=== PATIENT | female | born 1940 | race Hispanic/Latino ===

== ENCOUNTER → 2017-06-08 | Outpatient (CLI) | payer MEDICARE | LOC: RAH 17:00 | PROVIDERS: ATTEND Internal Medicine | DX: I70.0 Atherosclerosis of aorta (principal) | CPT/HCPCS: 71046 ==

== ENCOUNTER → 2017-07-16 | Outpatient (CLI) | payer MEDICARE | END | disposition home or self-care (01) | LOC: RAH 13:55 | PROVIDERS: ATTEND Internal Medicine | DX: M17.12 Unilateral primary osteoarthritis, left knee (principal); M25.561 Pain in right knee | CPT/HCPCS: 73562 ==

== ENCOUNTER → 2019-04-07 | Outpatient (CLI) | payer MEDICARE | END | disposition home or self-care (01) | LOC: RAH 13:22 | PROVIDERS: ATTEND Internal Medicine | DX: M19.071 Primary osteoarthritis, right ankle and foot (principal); M77.31 Calcaneal spur, right foot; M79.89 Other specified soft tissue disorders | CPT/HCPCS: 73610; 73630 ==

== ENCOUNTER → 2020-02-13 | Outpatient (CLI) | payer OTHER, MEDICARE | END | disposition home or self-care (01) | LOC: LAB 12:56 | PROVIDERS: ATTEND Internal Medicine Cardiovascular Disease | DX: R07.9 Chest pain, unspecified (principal); I10 Essential (primary) hypertension | CPT/HCPCS: 36415; 82550; 84484 ==

== ENCOUNTER → 2021-05-07 | Outpatient (CLI) | payer OTHER, MEDICARE | END | disposition home or self-care (01) | LOC: RAH 10:25 | PROVIDERS: ATTEND Internal Medicine | DX: I70.203 Unspecified atherosclerosis of native arteries of extremities, bilateral legs (principal); M71.22 Synovial cyst of popliteal space [Baker], left knee; M71.21 Synovial cyst of popliteal space [Baker], right knee | CPT/HCPCS: 93925 ==

== ENCOUNTER 2024-11-17 22:21 | Emergency (ER) | payer OTHER, MEDICARE ==
[~2024-11-17] VITALS: Ht 154.9 cm; Wt 84.8 kg
--- NOTE | 2024-11-17 22:32 | NUR ---
SEPSIS ALERT CALLED TO ER ROOM 5; PT WITH TEMP OF 101.1 W/PULSE OF 107
[2024-11-17 22:52] LABS: IMMATURE GRANULOCYTE ABSOLUTE 0.07 K/uL (0-1); NUCLEATED RED BLOOD CELLS 0.0 % (0.0-0.19); PLATELET COUNT (AUTO) 331 K/uL (130-400); RED BLOOD CELL COUNT(AUTO) 4.33 MIL/uL (4.00-5.50); RED CELL DISTRIBUTION WIDTH 14.6 % (11.0-15.5); WHITE BLOOD COUNT (AUTO) 13.3 K/uL (4.8-10.8)
--- NOTE | 2024-11-17 22:58 | ERN ---
ED Note History of Present Illness Stated Complaint: C/O HIGH B/P WITH DIZZINESS Chief Complaint: Hypertension Time Seen by MD: 22:29 Time Seen by Midlevel: 22:29 Dictation: The patient is a 84-year-old female with a history of hypertension who presents to the emergency department with complaints of elevated blood pressure, one episode of nonbloody vomiting , fevers onset today. Patient denies any abdominal pain, denies any cough but reports some throat irritation. Allergies: Coded Allergies: No Known Allergies (Unverified Allergy, Unknown, 11/17/24) Past Medical History Past Medical History: High Cholesterol, Hypertension Surgical History: RN Note Reviewed/Agreed w/PFSH: Yes Review of System Dictation Constitutional: Negative for chills, and weight loss positive for fever Eyes: Negative for injury, pain,redness, and discharge ENT: Negative for injury,pain or swelling Cardiovascular: Negative for chest pain, palpitations, and edema Respiratory: Negative for shortness of breath, cough, and wheezing, Abdomen/GI: Negative for abdominal pain, diarrhea, and constipation positive for nausea and vomiting Back: Negative for injury and pain : Negative for injury, bleeding and discharge MS/Extremity: Negative for injury and deformity Skin: Negative for rash, and discoloration Neuro: Negative for headache, weakness, numbness, tingling, and seizure Psych: Negative for suicide ideation, homicidal ideation, and hallucinations Initial Vital Sign VS Vital Signs Date Time Temp Pulse Resp B/P (MAP) Pulse Ox O2 Delivery O2 Flow Rate FiO2 11/17/24 22:24 101.1 107 20 178/76 93 Room Air 11/17/24 22:40 0 21 Physical Exam Dictation Vital Signs reviewed General Appearance: Alert, oriented x 3, no acute distress, well developed, nourished. Head and Face: non-traumatic. Eyes: PERRL, pink conjunctivas, eyelid no trauma, anterior chamber with arcus senilis. Ears: Pinnas intact and no signs of trauma or erythema ear canals clear and no discharge TM no erythema Nose: No discharge, no bleeding. Oropharynx: Mouth normal, tongue pink. pharynx clear,no erythema, tonsils no exudates, no abscesses noted, mucous membrane moist Neck: Supple, non-tender, no thyromegaly, no masses, no JVD, no bruits Breast:Deferred Chest:No tenderness, no crepitus, no paradoxical movement, no retractions Lungs:Clear, well-ventilated, symmetric, no rales, no wheezing, no rhonchi, no stridor, good breath sounds bilaterally Heart: Regular rate, regular rhythm, no murmur, no gallops Vascular: no peripheral edema, Abdomen: Soft, positive bowel sounds, nondistended, no guarding, nontender, no rebound, no masses no hepatomegaly, no splenomegaly, no Dominguez's sign, no hernias. Rectal: Deferred Genital: Deferred Neurological: Normal speech, motor function intact, sensory function intact Musculoskeletal: Neck nontender, full range of motion, back nontender, full range of motion, Extremities: nontender, full range of motion Skin: Color pink, dry, no turgor, no rash, no lacerations, no abrasions, no contusions. Lymphatic: Deferred Results (Laboratory/Radiology) Laboratory/Radiology Laboratory Tests Test 11/17/24 22:42 11/17/24 22:55 11/17/24 23:58 White Blood Count 13.3 K/uL (4.8-10.8) H Red Blood Count 4.33 MIL/uL (4.00-5.50) Hemoglobin 11.8 g/dL (12.0-16.0) L Hematocrit 36.2 % (36-48) Mean Corpuscular Volume 83.6 fL (79-99) Mean Corpuscular Hemoglobin 27.3 pg (27.0-33.0) Mean Corpuscular Hemoglobin Concent 32.6 g/dL (32.0-36.0) Red Cell Distribution Width 14.6 % (11.0-15.5) Platelet Count 331 K/uL (130-400) Mean Platelet Volume 9.4 fL (7.5-10.5) Immature Granulocyte % (Auto) 0.5 % (0-1) Neutrophils (%) (Auto) 87.3 % (40.0-77.0) H Lymphocytes (%) (Auto) 8.0 % (21.0-51.0) L Monocytes (%) (Auto) 3.5 % (3.0-13.0) Eosinophils (%) (Auto) 0.5 % (0.0-8.0) Basophils (%) (Auto) 0.2 % (0.0-5.0) Neutrophils # (Auto) 11.6 K/uL (1.8-7.7) H Lymphocytes # (Auto) 1.1 K/uL (1.0-4.8) Monocytes # (Auto) 0.5 K/uL (0.1-1.0) Eosinophils # (Auto) 0.07 K/uL (0.00-0.70) Basophils # (Auto) 0.02 K/uL (0.00-0.20) Absolute Immature Granulocyte (auto 0.07 K/uL (0-1) Nucleated Red Blood Cells 0.0 % (0.0-0.19) White Cell Morphology Comment See comments Sodium Level 134 mmol/L (136-145) L Potassium Level 3.9 mmol/L (3.5-5.1) Chloride Level 99 mmol/L (101-111) L Carbon Dioxide Level 26 mmol/L (21-32) Blood Urea Nitrogen 18 mg/dL (7-18) Creatinine 0.9 mg/dL (0.5-1.0) Glomerular Filtration Rate Calc 63 mL/min (>90) Random Glucose 180 mg/dL (70-105) H Lactic Acid Level 1.8 mmol/L (0.8-2.5) Total Calcium 8.8 mg/dL (8.5-10.1) Total Creatine Kinase 44 U/L (21-232) # Troponin I High Sensitivity 5 ng/L (4-50) B-Type Natriuretic Peptide 81 pg/mL (0-100) Influenza Type A Antigen Negative For Type A Influenza Type B Antigen Negative For Type B SARS-CoV-2 Antigen (Rapid) PRESUMPTIVE NEGATIVE Group A Streptococcus Rapid negative (NEGATIVE) Urine Color LIGHT-YELLOW (YELLOW) Urine Appearance CLEAR (CLEAR) Urine pH 6.0 (5.0-8.0) Urine Specific [place] 1.013 (1.001-1.031) Urine Protein NEGATIVE mg/dL (NEGATIVE) Urine Glucose (UA) NEGATIVE mg/dL (NEGATIVE) Urine Ketones NEGATIVE mg/dL (NEGATIVE) Urine Occult Blood NEGATIVE (NEGATIVE) Urine Nitrate NEGATIVE (NEGATIVE) Urine Bilirubin NEGATIVE mg/dL (NEGATIVE) Urine Urobilinogen 0.2 mg/dL (0.2-1.0) Urine Leukocyte Esterase 25 An/uL (NEGATIVE) H Urine RBC 2-5 /HPF (0-1) H Urine WBC 2-5 /HPF (0-1) H Urine Squamous Epithelial Cells RARE /HPF (0-2) Urine Bacteria None /HPF (None Seen) REASON: sob ORDERING PHYSICIAN: LATONIA DIEZ PROCEDURE: CXR1VW - CHEST 1VW EXAM: CR Chest, 1 view CLINICAL HISTORY: Shortness of breath. COMPARISON: Chest radiograph dated 10/08/2021. FINDINGS: The lungs show no infiltrates or other acute findings. No pleural effusion or pneumothorax. The cardiomediastinal silhouette is within normal limits. Mild atherosclerotic aorta. No acute osseous abnormality. Degenerative osseous changes. IMPRESSION: No acute cardiopulmonary process is evident. No interval changes. /[place] Labs Reviewed?: Yes EKG: (+) rhythm (Sinus tachycardia) EKG Comment: Date:11/17/2024 Time:2237 Ventricular rate:101 HI interval:148 QRS duration:93 QT/QTc:348/452 EKG interpretation: Sinus tachycardia, PACs, nonspecific T-wave abnormalities Reviewed by ED Attending no STEMI ED Course ED Course Orders Procedure Category Date Status Time Iv Insertion CPOE 11/17/24 Transmitted 22:30 Pulse Ox(Continuous) RT 11/17/24 Transmitted 22:30 Vital Signs Per CPOE 11/17/24 Transmitted Routine 22:30 12 Lead Ekg Tracing- EKG 11/17/24 Logged Technical 22:30 Cbc With Differential LAB 11/17/24 Complete 22:30 Blood Cult ASHLEY 11/17/24 In Process 22:30 Urinalysis Profile LAB 11/17/24 Complete 22:30 Culture Urine ASHLEY 11/17/24 In Process 22:30 Creatine Kinase, Total LAB 11/17/24 Complete 22:30 Troponin I High LAB 11/17/24 Complete Sensitivity 22:30 Lactic Acid LAB 11/17/24 Complete 22:30 Basic Metabolic Panel LAB 11/17/24 Complete 22:30 Chest 1vw RAD 11/17/24 Resulted 22:36 Covid19 (Sars Antigen LAB 11/17/24 Complete Rapid) 22:36 Influenza Type A & B, LAB 11/17/24 Complete Rapid 22:36 Rapid (Group A Strep) LAB 11/17/24 Complete 22:44 Ceftriaxone 1g Vial PHA 11/17/24 Complete (Rocephine 1g Inj) 23:00 Acetaminophen 500mg PHA 11/17/24 Complete Tab (Tylenol 500mg T 23:00 B-Type Natriuretic LAB 11/17/24 Complete Peptide 22:44 0.9%Nacl 1000ml (Ns PHA 11/17/24 In Process 1000ml) 23:00 Current Medications Medications (Trade) Dose Ordered Sig/Mauro Route PRN Reason Start Time Stop Time Status Last Admin Dose Admin Acetaminophen (TYLenol 500MG TAB) 1,000 mg ONCE ONCE PO 11/17/24 23:00 11/17/24 23:01 DC 11/17/24 23:01 Ceftriaxone Sodium (ROCEphine 1G INJ) 1 gm ONCE ONCE IVPB 11/17/24 23:00 11/17/24 23:01 DC 11/17/24 23:01 Sodium Chloride 1,000 ml @ 125 mls/hr ONCE ONCE IV 11/17/24 23:00 11/18/24 06:59 11/17/24 23:01 Vital Signs Date Time Temp Pulse Resp B/P (MAP) Pulse Ox O2 Delivery O2 Flow Rate FiO2 11/17/24 23:53 100.0 91 19 143/61 96 Room Air* 0 21 11/17/24 23:01 101.1 11/17/24 22:40 101.1 92 18 144/62 95 Room Air* 0 21 11/17/24 22:24 101.1 107 20 178/76 93 Room Air Medical Decision Making MDM MDM: The patient is a 84-year-old female with a history of hypertension who presents to the emergency department with complaints of elevated blood pressure, one episode of nonbloody vomiting , fevers onset today. Patient denies any abdominal pain, denies any cough but reports some throat irritation. Patient denies any diarrhea or constipation, denies any urinary discomfort, denies any more nausea or vomiting. CBC showed mild leukocytosis, mild normocytic anemia, chemistry showed mild hyponatremia, mild hypochloremia, GFR of 63, lactic acid was 1.0, urinalysis positive for leukocyte esterase. Chest x-ray showed no acute pathology. Serology was negative. I discussed admission with the patient and inform her that I would like to admit her to the hospital due to her age and her symptoms. Discussed risks and benefits with the patient. After long discussion patient does not want to be admitted to the hospital. States she will follow up with her primary doctor in the morning. Patient currently not complaining of any chest pain no shortness of breath no abdominal pain, no nausea or vomiting. On physical exam patient is in no acute distress, nontoxic appearance. Neurologically intact, ambulates with the assistance Vital signs remained stable. Family was at bedside during discussion. Patient agrees that if she worsens she will return to ER. We will discharge patient to follow up with primary doctor. Differential diagnosis: Sepsis, pneumonia, upper respiratory infection, UTI, electrolyte imbalance, ACS Comorbidities: Hypertension Need for hospitalization: Patient does not meet criteria for hospitalization. There are no social concerns with this patient. DX & DISP Disposition: Discharge Departure Impression: Primary Impression: UTI (urinary tract infection) Additional Impressions: Leukocytosis, Fever Condition: Stable Scripts Cephalexin Monohydrate (Keflex) 500 Mg Cap 500 MG PO BID for 7 Days, #14 CAP Prov: LATONIA DIEZ 11/18/24 Additional Instructions: Please take your antibiotics as prescribed. Please follow up with your primary doctor as soon as possible. If anything worsens please return to ER. You can continue taking Tylenol as needed for the fevers at home. FOLLOW-UP WITH PRIMARY CARE PROVIDER IN 1 TO 2 DAYS. TAKE MEDICATIONS DIRECTED HERE IN THE EMERGENCY ROOM. OKAY TO CONTINUE HOME MEDICATIONS UNLESS OTHERWISE DISCUSSED DURING YOUR VISIT IN THE EMERGENCY ROOM TODAY. RETURN TO YOUR NEAREST EMERGENCY ROOM IF SYMPTOMS WORSEN OR IF THERE IS NO IMPROVEMENT. CALL 911 IF YOU NEED IMMEDIATE ASSISTANCE. TAKE TYLENOL [id number] NEEDED AND IF NO CONTRAINDICATIONS ARE PRESENT. INCREASE ORAL HYDRATION. A WOUND CULTURE OR URINE CULTURE WAS ORDERED HERE IN THE EMERGENCY ROOM DEPARTMENT PLEASE FOLLOW-UP WITH PRIMARY CARE PROVIDER AND ADVISE THEM TO GET REPEAT PORTS FROM OUR FACILITY. IF YOU HAD ANY COLLINS WRAP/SPLINTS THAT WERE APPLIED HERE, PLEASE DO NOT REMOVE THEM UNTIL YOU SEE YOUR PRIMARY CARE OR SPECIALTY. Referrals: TONNY SAENZ MD (PCP) Time of Disposition: 01:20 I have reviewed the case, and I agree with, Diagnosis and Plan LATONIA DIEZ Nov 17, 2024 22:58
[2024-11-17] MEDS: 0.9%NACL 1000ML 1,000 ML IV ONE (23:01)
[2024-11-17 23:05] LABS: CREATINE KINASE, TOTAL 44.0 U/L (21-232); CREATININE 0.9 mg/dL (0.5-1.0); GLOMERULAR FILTR. RATE CALC 63.0 mL/min (>90); GLUCOSE,RANDOM 180.0 mg/dL (70-105); SODIUM SERUM 134.0 mmol/L (136-145); UREA NITROGEN, BLOOD 18.0 mg/dL (7-18)
[2024-11-17 23:27] LABS: COVID19 (SARS ANTIGEN RAPID) PRESUMPTIVE NEGATIVE (NEGATIVE); INFLUENZA TYPE A Negative For Type A (NEGATIVE); INFLUENZA TYPE B Negative For Type B (NEGATIVE)
--- NOTE | 2024-11-17 23:34 | HMCIMG ---
EXAM: CR Chest, 1 view CLINICAL HISTORY: Shortness of breath. COMPARISON: Chest radiograph dated 10/08/2021. FINDINGS: The lungs show no infiltrates or other acute findings. No pleural effusion or pneumothorax. The cardiomediastinal silhouette is within normal limits. Mild atherosclerotic aorta. No acute osseous abnormality. Degenerative osseous changes. IMPRESSION: No acute cardiopulmonary process is evident. No interval changes. /[place]
[2024-11-17 23:54] VITALS: TEMP 100.1
[2024-11-18 00:34] LABS: APPEARANCE,URINE CLEAR (CLEAR); GLUCOSE, URINE (UA) NEGATIVE (NEGATIVE); LEUKOCYTE ESTERASE ,URINE 25 Leu/uL (NEGATIVE); NITRATE,URINE NEGATIVE (NEGATIVE); OCCULT BLOOD,URINE NEGATIVE (NEGATIVE)
[2024-11-18 00:37] LABS: ADD UA MICROSCOPIC YES
[2024-11-18 00:38] LABS: SQUAMOUS EPITHELIAL CELL,UR RARE /HPF (0-2)
[2024-11-18] MEDS ORDERED: CEPH500B PO (01:27)
[2024-11-18 01:30] VITALS: BP 145/67; PULSE 89; RESP 16; TEMP 98.9; O2SAT 96
--- NOTE | 2024-11-18 05:33 | EKG ---
[facility] Test Date: 2024-11-17 Test Time: 22:37:26 Pat Name: BENITA ORELLANA Department: ED Room: Gender: F Head Bucker: [id number] : [id number] Requested By: MURPHY MEJIAS Order Number: [id number] Reading MD: Efrain Jacob Measurements Intervals [place] Rate: 101 P: 23 HI: 148 QRS: -32 QRSD: 93 T: 47 QT: 348 QTc: 452 Interpretive Statements Sinus tachycardia Atrial premature complex Nonspecific T abnormalities, anterior leads No previous ECG available for comparison Electronically Signed On 11-20-2024 10:49:43 CDT by Efrain Jacob Please click the below link to view image of tracing.
== END 2024-11-18 01:38 | disposition home or self-care (01) ==
LOC: EDH 22:21
DX: N39.0 Urinary tract infection, site not specified (principal); D72.829 Elevated white blood cell count, unspecified; E78.00 Pure hypercholesterolemia, unspecified; I10 Essential (primary) hypertension; Z20.822 Contact with and (suspected) exposure to COVID-19; Z98.890 Other specified postprocedural states
CPT/HCPCS: 99284; 96365; 71045; 87426; 82550; 84484; 80048; 83880; 85025; 87040 ×2; 87086; 87880; 87804 ×2; 83605; 81001; 36415; 93005; J7030; J0696

== ENCOUNTER → 2024-12-30 | Outpatient (CLI) | payer OTHER, MEDICARE ==
[~2024-12-30] MED LIST: CEPH500B PO
--- NOTE | 2024-12-30 13:02 | HMCIMG ---
Exam: NONCONTRAST CT BRAIN REASON: UNSPEC DEMENTIA. COMPARISON: None. TECHNIQUE: Images are obtained from vertex to the skull base. The exam was performed without IV contrast. FINDINGS: There is normal appearing brain parenchyma. There are no focal mass lesions. There is is no evidence of intracranial hemorrhage or acute stroke. Ventricles and sulci appear normal. Posterior fossa and brainstem structures are unremarkable. Paranasal sinuses and remaining extracranial soft tissues appear normal as well. There is global atrophy with periventricular ischemic white matter changes.. This is consistent with patient's chronological age. Bilateral hyperostosis frontalis interna. IMPRESSION: 1. No acute intracranial process.. CT was performed with one or more following dose reduction techniques: automated exposure control, adjustment of the mA and kv according to patient's size, or use of a iterative reconstruction technique.
== END | disposition home or self-care (01) ==
LOC: RAH 10:13
PROVIDERS: ATTEND Internal Medicine
DX: I67.82 Cerebral ischemia (principal); G31.89 Other specified degenerative diseases of nervous system; M85.2 Hyperostosis of skull; F03.90 Unspecified dementia, unspecified severity, without behavioral disturbance, psychotic disturbance, mood disturbance, and anxiety
CPT/HCPCS: 70450